=== PATIENT | male | born 1975 ===

== ENCOUNTER 2017-10-13 15:44 | Emergency (ER) | payer BC, OTHER ==
[2017-10-13 16:02] VITALS: BP 136/86
--- NOTE | 2017-10-13 16:37 | UC ---
Shawn Villegas Julia, scribed for Thee Nuñez MD on 10/13/17 at 1636 . Back Pain HPI - HPI Summary HPI Summary: This patient is a 42 year old M presenting to [facility] [place] with a chief complaint of "stiff" L lower back pain radiating into left buttock since 10/11/17 after powerlifting/squatting competition. Patient denies weakness, numbness, urinary or bowel symptoms, and midline back pain. The patient rates the pain 9/10 in severity. Symptoms aggravated by driving. Patient has had previous symptoms about 2 months ago after similar competition. Patient has been self-medicating with lidocaine patch and Tylenol. - History of Current Complaint Chief Complaint: UCBackPain Stated Complaint: LEG PAIN Time Seen by Provider: 10/13/17 16:19 Hx Obtained From: Patient Onset/Duration: Lasting Days Timing: Constant Pain Intensity: 9 Pain Scale Used: 0-10 Numeric Back Pain: Is Discrete @ - L lower, Radiates To - L buttock Character: Stiffness Aggravating Factor(s): Other - driving Associated Signs And Symptoms: Positive: Negative - Allergies/Home Medications Allergies/Adverse Reactions: Allergies Allergy/AdvReac Type Severity Reaction Status Date / Time No Known Allergies Allergy Verified 10/13/17 16:02 PMH/Surg Hx/FS Hx/Imm Hx - Additional Past Medical History Additional PMH: back pain secondary to powerlifting - Surgical History Surgical History: None - Family History Known Family History: Positive: Diabetes - Social History Alcohol Use: None Substance Use Type: None Smoking Status (MU): Never Smoked Tobacco Review of Systems Gastrointestinal: Negative Genitourinary: Negative Motor: Negative - weakness Musculoskeletal: Other: - L low back pain radiating into L buttock Neurological: Negative - numbness All Other Systems Reviewed And Are Negative: Yes Physical Exam Triage Information Reviewed: Yes Vital Signs: Initial Vital Signs Temp 97.9 F 10/13/17 15:58 Pulse 58 10/13/17 15:58 Resp 12 10/13/17 15:58 BP 136/86 10/13/17 15:58 Pulse Ox 100 10/13/17 15:58 Vital Signs Reviewed: Yes - Additional Comments Physical Exam: General: well-appearing, no pain distress Skin: warm, color reflects adequate perfusion, dry Head: normal Eyes: EOMI, SARTHAK ENT: normal Neck: supple, nontender Respiratory: CTA, breath sounds present Cardiovascular: RRR Abdomen: soft, nontender Bowel: present Musculoskeletal: normal, strength/ROM intact, no sensation deficiencies, no midline tenderness, L sciatic distribution tenderness, pain is reproduced with any movement of left leg Neurological: normal, sensory/motor intact, A&O x3 Psychological: affect/mood appropriate Back Pain Course/Dx - Course Course Of Treatment: NO NEUROLOGIC DEFICIT - Differential Dx/Diagnosis Provider Diagnoses: LEFT SCIATICA Discharge - Discharge Plan Condition: Stable Disposition: HOME Prescriptions: Cyclobenzaprine TAB* [Flexeril 10 MG TAB*] 10 mg PO TID PRN #15 tab PRN Reason: Pain HYDROcodone/ACETAMIN 5-325 MG* [[place] 5-325 TAB*] 1 tab PO Q4H PRN #30 tab MDD 6 PRN Reason: Pain Ibuprofen TAB* [Motrin TAB* 600 MG] 600 mg PO Q6H PRN #30 tab PRN Reason: Pain Patient Education Materials: Sciatica (ED) Forms: *Work Release Referrals: [facility] [place] [facility] REFERRAL [Outside] No Primary Care Phys,NOPCP [Primary Care Provider] - Additional Instructions: FOLLOW UP WITH YOUR DOCTOR. GET RECHECKED FOR ANY WORSENING OF YOUR CONDITION; PAIN, WEAKNESS, NUMBNESS, DIFFICULTY CONTROLLING BOWEL OR BLADDER OR QUESTIONS OR CONCERNS. The documentation as recorded by the Shawn aguirre Julia accurately reflects the service I personally performed and the decisions made by me, Thee Nuñez MD.
== END 2017-10-13 16:40 | disposition home or self-care (01) ==
LOC: UCEAST 15:44
DX: M54.32 Sciatica, left side (principal)
CPT/HCPCS: 99202; G0463